=== PATIENT | female | born 1975 | race American Indian/Alaskan Native ===

== ENCOUNTER 2017-01-01 11:42 | Outpatient (CLI) | payer BC ==
--- NOTE | 2017-01-01 12:37 | Mammography Report ---
BILATERAL DIGITAL SCREENING MAMMOGRAM with CAD: 01/01/17 11:42:00 CLINICAL: Routine screening. COMPARISON:01/02/16 FINDINGS: The breasts are heterogeneously dense, which may obscure small masses. Right asymmetries require additional imaging.No architectural distortion or suspicious calcifications.The left breast is negative. IMPRESSION: Right asymmetries requiring further workup. BI-RADS CATEGORY: 0 -- Additional Imaging Evaluation Required RECOMMENDATION: Recall for right lateralmedial , spot compression CC and MLO views and right breast ultrasound if needed. ACR BI-RADS MAMMOGRAPHIC CODES: 0 = Needs additional imaging evaluation; 1 = Negative; 2 = Benign; 3 = Probably benign; 4 = Suspicious; 5 = Malignant; 6 = Known biopsy-proven malignancy COMMENT: 1. Dense breast tissue, i.e., adenosis, fibrocystic changes, etc., may obscure an underlying neoplasm. 2. Approximately 10% of cancers are not detected with mammography. 3. A negative mammography report should not delay biopsy if a clinically suspicious mass is present. COMMENT: Patient follow-up letters are generated via our [employer] application.
== END 2017-01-01 11:43 | disposition home or self-care (01) ==
LOC: MAMMO 11:42
PROVIDERS: ATTEND Specialist
DX: Z12.31 Encounter for screening mammogram for malignant neoplasm of breast (principal)
CPT/HCPCS: 77067; G0202

== ENCOUNTER 2017-01-03 10:31 | Outpatient (CLI) | payer BC ==
--- NOTE | 2017-01-03 13:45 | Mammography Report ---
RIGHT DIGITAL DIAGNOSTIC MAMMOGRAM : 01/03/17 10:31:00 CLINICAL: Recalled for asymmetries at screening. COMPARISON:01/01/17 FINDINGS: Routine and tomographic MLO and CC views of the right breast are performed.Asymmetries do not persist on the MLO view in the MLO tomographic images are normal. An 8mm oval circumscribed asymmetry at the level of the nipple and 8 cm from the nipple on the CC view persists. It has a lobular margin with a suggestion of central fat. No other asymmetry persists on CC views. IMPRESSION: A persistent 8mm central asymmetry 8 cm from the nipple on the CC view. The morphology suggests that this may be an intramammary lymph node with central fat. Recommend targeted right breast ultrasound. BI-RADS CATEGORY: 0--Needs Additional Imaging ACR BI-RADS MAMMOGRAPHIC CODES: 0 = Needs additional imaging evaluation; 1 = Negative; 2 = Benign; 3 = Probably benign; 4 = Suspicious; 5 = Malignant; 6 = Known biopsy-proven malignancy COMMENT: 1. Dense breast tissue, i.e., adenosis, fibrocystic changes, etc., may obscure an underlying neoplasm. 2. Approximately 10% of cancers are not detected with mammography. 3. A negative mammography report should not delay biopsy if a clinically suspicious mass is present. COMMENT: Patient follow-up letters are generated by our [employer] application.
== END 2017-01-03 10:32 | disposition home or self-care (01) ==
LOC: MAMMO 10:31
PROVIDERS: ATTEND Specialist
DX: N64.89 Other specified disorders of breast (principal)
CPT/HCPCS: G0206-RT

== ENCOUNTER 2017-01-14 11:17 | Outpatient (CLI) | payer BC ==
--- NOTE | 2017-01-14 15:36 | Ultrasound Report ---
RIGHT BREAST ULTRASOUND: 01/14/17 11:17:00 CLINICAL: A 7.8 mm circumscribed oval asymmetry identified only on the CC tomographic view. COMPARISON: 01/03/17 FINDINGS: Ultrasound of the right breast(including all four quadrants and the retroareolar area) was performed and demonstrated a single oval cyst at 11:30 o'clock 5 cm from the nipple. It measures 5 x 3 x 4 mm. No other cyst and no solid mass or shadowing. IMPRESSION: A benign cyst at 11:30 o'clock 5 cm from the nipple and a probably benign mammographic asymmetry which may or may not correlate with the ultrasound. BI-RADS 3 - - Probably Benign RECOMMENDATION: Six month followup right mammogram with tomography since the mammographic abnormality is only identified on the CC tomographic view.
== END 2017-01-14 11:18 | disposition home or self-care (01) ==
LOC: SPVWC 11:17
PROVIDERS: ATTEND Specialist
DX: N63 Unspecified lump in breast (principal); N64.89 Other specified disorders of breast; N60.01 Solitary cyst of right breast

== ENCOUNTER 2017-07-18 12:37 | Outpatient (CLI) | payer BC ==
--- NOTE | 2017-07-21 11:58 | Mammography Report ---
RIGHT DIGITAL DIAGNOSTIC MAMMOGRAM with CAD and with TOMOSYNTHESIS : 07/18/17 12:37:00 CLINICAL: Six month followup asymmetry identified only on the tomosynthesis with a negative ultrasound. COMPARISON:01/03/17 FINDINGS: Routine views demonstrate heterogeneously dense breast with no mass, architectural distortion or suspicious calcifications. No asymmetry on the CC view to correlate with previous finding on the tomosynthesis. A right asymmetry on the MLO view demonstrates satisfactory effacement with spot compression.A slightly smaller and less well circumscribed asymmetry is identified on the CC tomographic series and it correlates with the previous finding. A larger more midline asymmetry is also identified on the same image and there is no correlation on MLO views. IMPRESSION: Asymmetries which are identified only on the CC tomographic series. Recommend breast MRI. BI-RADS CATEGORY: 0--Needs Additional Imaging ACR BI-RADS MAMMOGRAPHIC CODES: 0 = Needs additional imaging evaluation; 1 = Negative; 2 = Benign; 3 = Probably benign; 4 = Suspicious; 5 = Malignant; 6 = Known biopsy-proven malignancy COMMENT: 1. Dense breast tissue, i.e., adenosis, fibrocystic changes, etc., may obscure an underlying neoplasm. 2. Approximately 10% of cancers are not detected with mammography. 3. A negative mammography report should not delay biopsy if a clinically suspicious mass is present. COMMENT: Patient follow-up letters are generated by our [email or web address] application.
== END 2017-07-18 12:38 | disposition home or self-care (01) ==
LOC: MAMMO 12:37
PROVIDERS: ATTEND Specialist
DX: N64.89 Other specified disorders of breast (principal)
CPT/HCPCS: G0206; G0279

== ENCOUNTER 2017-08-12 12:02 | Outpatient (CLI) | payer BC ==
--- NOTE | 2017-08-13 11:37 | Magnetic Resonance Report ---
BILATERAL BREAST MRI WITHOUT AND WITH CONTRAST: 08/12/17 12:02:00 CLINICAL: Right mammographic asymmetries. COMPARISON:07/18/17 Bilateral Diagnostic Mammogram with 3-D tomosynthesis. TECHNIQUE: Axial 1.0-mm T1 without, axial high resolution 2.0-mm T2 and axial 1.0-mm dynamic Vibrant high-resolution postcontrast T1 fat saturation sequences on a 1.5 Celeste magnet. The examination was performed with an 8 channel dedicated [employer] breast coil. Post processing with CAD and subtraction was performed on an [employer] workstation. 13 cc of Multihance was injected without incident for the contrast portion of the exam. Consent was obtained prior to the administration of the contrast. FINDINGS: Respiratory motion degrades the quality of the exam. Right: Mild background parenchymal enhancement. No mass or suspicious enhancement. No finding to correlate with the asymmetries identified on the recent tomographic mammogram. No suspicious lymph nodes. Left: Mild background parenchymal enhancement. No mass or suspicious enhancement. No suspicious lymph nodes. IMPRESSION: Negative bilateral breast MRI with no findings to correlate with two probably benign right mammographic asymmetries. Recommend a six month followup right diagnostic mammogram with 3-D tomosynthesis. BI-RADS 3 - - Probably Benign
== END 2017-08-12 12:03 | disposition home or self-care (01) ==
LOC: SPVIMAG 12:02
PROVIDERS: ATTEND Specialist
DX: R92.8 Other abnormal and inconclusive findings on diagnostic imaging of breast (principal)
CPT/HCPCS: A9577; C8908; 77059

== ENCOUNTER 2018-02-06 13:08 | Outpatient (CLI) | payer BC ==
--- NOTE | 2018-02-06 16:00 | Mammography Report ---
BILATERAL DIGITAL SCREENING MAMMOGRAM with CAD and DIGITAL BREAST TOMOSYNTHESIS (DBT) : 02/06/18 CLINICAL: Routine screening. COMPARISON:07/18/17 bilateral diagnostic digital breast tomosynthesis (DBT) and 01/01/17 bilateral screening mammogram FINDINGS: The breasts are heterogeneously dense, which may obscure small masses. Previously identified right asymmetries are no longer identified. No mass, architectural distortion or suspicious calcifications. IMPRESSION: No mammographic evidence of malignancy. BI-RADS CATEGORY: 1 - - Negative RECOMMENDATION: Routine mammographic screening in one year. COMMENT: Patient follow-up letters are generated by our [employer] application.
== END 2018-02-06 13:09 | disposition home or self-care (01) ==
LOC: MAMMO 13:08
PROVIDERS: ATTEND Obstetrics & Gynecology
DX: Z12.31 Encounter for screening mammogram for malignant neoplasm of breast (principal)
CPT/HCPCS: 77063; 77067

== ENCOUNTER 2019-03-02 14:09 | Outpatient (CLI) | payer BC ==
--- NOTE | 2019-03-03 09:21 | Mammography Report ---
BILATERAL DIGITAL SCREENING MAMMOGRAM WITH CAD 3D TOMOSYNTHESIS INDICATION: Routine screening. History of a right asymmetry. COMPARISONS: 02/06/2018, 01/03/2017 and 01/01/2017 FINDINGS: 2D and 3D craniocaudal and mediolateral oblique views of both breasts were obtained utilizi [employer] digital acquisition. The breast tissue is heterogeneously dense, which may obscure small masses. N o suspicious findings are noted in either breast. In addition to standard review, the examination was analyzed for possible abnormalities using a [employer] ter-assisted detection device (iCAD). IMPRESSION: NO EVIDENCE OF MALIGNANCY IN EITHER BREAST. SCREENING MAMMOGRAPHY IN ONE YEAR IS RECOMMENDED. BI-RADS CATEGORY 1: NEGATIVE COMMENT: Patient follow-up letters are generated by our [email or web address] application. Signer Name: Juan M Alfredo MD Signed: 03/03/2019 9:17 AM Workstation Name: [id number]
--- NOTE | 2019-03-03 09:21 | Mammography Report ---
BILATERAL DIGITAL SCREENING MAMMOGRAM WITH CAD 3D TOMOSYNTHESIS INDICATION: Routine screening. History of a right asymmetry. COMPARISONS: 02/06/2018, 01/03/2017 and 01/01/2017 FINDINGS: 2D and 3D craniocaudal and mediolateral oblique views of both breasts were obtained utilizi [employer] digital acquisition. The breast tissue is heterogeneously dense, which may obscure small masses. N o suspicious findings are noted in either breast. In addition to standard review, the examination was analyzed for possible abnormalities using a [employer] ter-assisted detection device (iCAD). IMPRESSION: NO EVIDENCE OF MALIGNANCY IN EITHER BREAST. SCREENING MAMMOGRAPHY IN ONE YEAR IS RECOMMENDED. BI-RADS CATEGORY 1: NEGATIVE COMMENT: Patient follow-up letters are generated by our [employer] application. Signer Name: Juan M Alfredo MD Signed: 03/03/2019 9:17 AM Workstation Name: [id number]
== END 2019-03-02 14:10 | disposition home or self-care (01) ==
LOC: SPVWC 14:09
PROVIDERS: ATTEND Obstetrics & Gynecology
DX: Z12.31 Encounter for screening mammogram for malignant neoplasm of breast (principal)
CPT/HCPCS: 77063; 77067